=== PATIENT | female | born 1975 | race Caucasian/White ===

== ENCOUNTER 2018-07-14 12:20 | Day surgery (SDC) | payer MEDICAID ==
[~2018-07-14 12:20] MED LIST: CEFAZOLIN 1 GM INJ
[2018-07-14] MEDS ORDERED: LIDOCAINE 2% (SDV) 5 ML INJ (12:41)
[2018-07-14] MEDS ORDERED: PROPOFOL 20 ML (12:41)
[2018-07-14] MEDS ORDERED: FENTAnyl 50 MCG/ML VIAL (12:41)
[2018-07-14] MEDS ORDERED: ROCURONIUM 50 MG INJ (12:41)
[2018-07-14] MEDS ORDERED: MIDAZOLAM 1 MG/ML 2 ML INJ (12:41)
[2018-07-14] MEDS ORDERED: GLYCOPYRROLATE 0.4 MG INJ (12:41)
[2018-07-14] MEDS ORDERED: NEOSTIGMINE 3 MG/3 ML SYRINGE (12:41)
[2018-07-14] MEDS ORDERED: DEXAMETHASONE 4 MG/ML 1 ML INJ (12:42)
[2018-07-14] MEDS ORDERED: ONDANSETRON 4 MG INJ (12:42)
[2018-07-14] MEDS ORDERED: DIPHENHYDRAMINE 50 MG INJ IV (14:00)
[2018-07-14] MEDS ORDERED: morphine (1 MG/ML) 10ML SYRINGE IV ×3 (14:00)
[2018-07-14] MEDS ORDERED: LABETALOL HCL 20MG INJ IV (14:00)
[2018-07-14] MEDS ORDERED: OXYCODONE/ACETAMINOPHEN (5/325) TAB PO ×2 (14:00)
[2018-07-14] MEDS ORDERED: MIDAZOLAM 1 MG/ML 2 ML INJ IV (14:00)
[2018-07-14] MEDS ORDERED: FENTAnyl 50 MCG/ML VIAL IV (14:00)
[2018-07-14] MEDS ORDERED: ATROPINE 1 MG/10 ML SYRINGE IV (14:00)
[2018-07-14] MEDS ORDERED: ONDANSETRON 4 MG INJ IV (14:00)
[2018-07-14] MEDS ORDERED: EPHEDrine SULFATE 50 MG/5 ML SYG IV (14:00)
[2018-07-14] MEDS ORDERED: hydrALAzine 20 MG INJ IV (14:00)
[2018-07-14] MEDS ORDERED: HYDROmorphONE 1 MG/5 ML IV SYRINGE IV ×2 (14:00)
[2018-07-14] MEDS ORDERED: MEPERIDINE 25 MG INJ IV (14:00)
[2018-07-14] MEDS ORDERED: CEFAZOLIN 1 GM/50 ML (PMX) 50 ML IVPB (14:30)
[2018-07-14] MEDS ORDERED: SOD CHLORIDE 0.9% 1,000 ML IV (14:30)
[2018-07-14] MEDS: FENTAnyl 50 MCG/ML VIAL IV (16:43)
[2018-07-14] MEDS: HYDROmorphONE 1 MG/5 ML IV SYRINGE IV (16:44)
== END 2018-07-14 17:30 | disposition home or self-care (01) ==
LOC: SDS 12:20
DX: N63.12 Unspecified lump in the right breast, upper inner quadrant (principal); R22.31 Localized swelling, mass and lump, right upper limb
CPT/HCPCS: 19101; 87070; 87075; 87102; 87116; 88307